=== PATIENT | male | born 1945 | race Two or more races ===

== ENCOUNTER 2019-08-10 05:05 | Day surgery (SDC) | payer OTHER ==
[~2019-08-10 05:05] MED LIST: ACID REDUCER20 M1 PO; BRIMONIDINE 0.110 ML OP; SIMVASTATIN1 GM; SYNTHROID50 MCG PO; TAMSULOSIN HCL0.4 MG PO; TIMOLOL-BRIMONI-5 ML OP
[2019-08-10] MEDS ORDERED: PERCOCET 5-3251 EACH PO (08:15)
[2019-08-10] MEDS ORDERED: RECTICARE30 GM TOP (08:16)
== END 2019-08-10 14:25 | disposition home or self-care (01) ==
LOC: CIR.AMB 05:05
DX: K64.2 Third degree hemorrhoids (principal)